=== PATIENT | male | born 1960 | race Caucasian/White ===

== ENCOUNTER 2016-07-11 20:38 | Emergency (ER) | payer SELFPAY ==
--- NOTE | 2016-07-11 21:47 | NUR ---
PATIENT LEFT WITHOUT BEING SEEN BY DR. CHURCH. NO FURTHER CARE PROVIDED FOR PATIENT.
--- NOTE | 2016-07-11 21:47 | NUR ---
Man benito in [facility] - 07/12/16 at 0233 by ANTHONY PATIENT LEFT WITHOUT BEING SEEN BY DR. HECK. NO FURTHER CARE PROVIDED FOR PATIENT.
== END 2016-07-11 21:47 | disposition left against medical advice (07) ==
LOC: MED 20:38
DX: H92.09 Otalgia, unspecified ear (principal); Z53.21 Procedure and treatment not carried out due to patient leaving prior to being seen by health care provider

== ENCOUNTER 2016-07-12 14:29 | Emergency (ER) | payer SELFPAY ==
[~2016-07-12] VITALS: Ht 172.7 cm; Wt 81.6 kg
[2016-07-12 15:38] VITALS: BP 132/82
--- NOTE | 2016-07-12 17:07 | NUR ---
Patient ambulated to bed 08.
--- NOTE | 2016-07-12 17:12 | NUR ---
55/M presents to ED for evaluation of right ear pain for the past 3-4 days. Patient states he was cleaning his ear with a q-tip and believes that a piece of cotton got lodged in. Pt is c/o worsening pain over the past few days. Pt c/o pain to right ear and now to right side of head, 09/26. Pt denies any fever or chills. Patient also c/o mild hearing loss. Patient is AOX[employer], korean speaking. VSS.
--- NOTE | 2016-07-12 17:20 | NUR ---
RT. EAR IRRIGATION BY EMT
[2016-07-12 18:15] VITALS: BP 145/78
--- NOTE | 2016-07-12 18:15 | NUR ---
Chart checked and completed. The patient's care was reviewed and supervised by Alonzo Casillas RN.
--- NOTE | 2016-07-12 18:15 | NUR ---
Patient discharged with v/s stable. Written and verbal after care instructions given and explained. Patient alert, oriented and verbalized understanding of instructions. Ambulatory with steady gait. All questions addressed prior to discharge. ID band removed. Patient advised to follow up with PMD. Rx of CORTISPORIN given. Patient educated on indication of medication including possible reaction and side effects. Opportunity to ask questions provided and answered.
== END 2016-07-12 18:15 | disposition home or self-care (01) ==
LOC: MED 14:29
DX: H61.21 Impacted cerumen, right ear (principal)